=== PATIENT | male | born 1990 | race Caucasian/White ===

== ENCOUNTER 2021-09-04 15:50 | Inpatient (IN) | payer BC, OTHER ==
[~2021-09-04] VITALS: Ht 182.9 cm; Wt 87.3 kg
[2021-09-04] MEDS ORDERED: SODIUM CHLORIDE 0.9% 1,000 ML IV ONE ×3 (16:00→16:15)
[2021-09-04] MEDS ORDERED: InsuLIN REG 1unit/0.01ml Soln (100units/ml) IV ONE (16:15)
[2021-09-04 17:20] LABS: Basophils # (auto) 0.1 10 ^3/uL (0-0.2); Basophils % (auto) 1.3 % (0.0-2.0); Eosinophils # (auto) 0.6 10 ^3/uL (0-0.8); Eosinophils % (auto) 8.1 % (0.0-7.0); Hematocrit 42.3 % (41.0-53.0); Hemoglobin 14.4 g/dL (13.5-17.5); Lymphocytes # (auto) 2.3 10 ^3/uL (0.4-5.4); Mean Corpuscular Hemoglobin 32.2 pg (28.0-32.0); Mean Corpuscular Volume 94.7 fL (80.0-100.0); Monocytes # (auto) 0.3 10 ^3/uL (0-1.3); Monocytes % (auto) 4.3 % (0.0-12.0); Neutrophils # (auto) 4.5 10 ^3/uL (1.6-8.6); Neutrophils % (auto) 57.3 % (37.0-80.0); Nucleated Red Blood Cells % 0.2 %; Red Blood Cells 4.47 10^6/uL (4.5-5.90); Red Cell Distribution Width 13.5 % (11.8-14.3); White Blood Cell 7.9 10^3/uL (4.4-10.8)
[2021-09-04 17:43] LABS: Albumin 3.3 g/dL (3.4-5.0); BUN/Creatinine Ratio 13.4; Calcium 9.1 mg/dL (8.5-10.1); Potassium 4.3 mmol/L (3.5-5.1)
[2021-09-04 17:46] LABS: Bilirubin, Total 0.9 mg/dL (0.2-1.0); Total Protein 7.2 g/dL (6.4-8.2)
[2021-09-04 19:01] LABS: Alcohol, Urine < 3.0 mg/dL (0-10); Amphetamine Screen, Urine NEGATIVE (NEGATIVE); Barbiturate Scree,Urine NEGATIVE (NEGATIVE); Benzodiazephine Screen, Urine NEGATIVE (NEGATIVE); Cannabinoid Screen, Urine NEGATIVE (NEGATIVE); Cocaine Screen, Urine NEGATIVE (NEGATIVE); Opiate Scree,Urine NEGATIVE (NEGATIVE); Phencyclidine Screen, Urine NEGATIVE (NEGATIVE)
[2021-09-04] MEDS ORDERED: DEXTROSE (50%) 50ML SYRG IV PRN (21:15)
[2021-09-04] MEDS ORDERED: ONDANSETRON HCL 4 MG/2 ML VIAL IV PRN (21:15)
[2021-09-04 22:35] LABS: Calcium 7.9 mg/dL (8.5-10.1); Potassium 3.8 mmol/L (3.5-5.1)
[2021-09-04] MEDS ORDERED: MORPHINE SULFATE INJECTION 2 MG/ML SYRG IV ONE (23:00)
[2021-09-04] MEDS ORDERED: ONDANSETRON HCL 4 MG/2 ML VIAL IV ONE (23:00)
[2021-09-05] MEDS: ACCU-CHEK COMFORT CURVE STRIP VI SCH ×5 (00:01→16:16)
[2021-09-05] MEDS: InsuLIN REG 1unit/0.01ml Soln (100units/ml) SC SCH ×5 (00:02→16:18)
[2021-09-05 05:00] VITALS: BP 144/84
[2021-09-05] MEDS ORDERED: DAPA1TAB4 PO (06:56)
[2021-09-05] MEDS ORDERED: INSLISPI SC (06:56)
[2021-09-05] MEDS ORDERED: LEVO25TA6 PO ×2 (06:57→14:03)
[2021-09-05 07:02] LABS: Basophils # (auto) 0.1 10 ^3/uL (0-0.2); Eosinophils % (auto) 14.3 % (0.0-7.0); Hemoglobin 12.8 g/dL (13.5-17.5); Lymphocytes # (auto) 3.6 10 ^3/uL (0.4-5.4); Lymphocytes % (auto) 51.9 % (10.0-50.0); Mean Corpuscular Hemoglobin 32.5 pg (28.0-32.0); Mean Corpuscular Hgb Conc. 33.8 g/dL (32.0-36.0); Mean Corpuscular Volume 96.3 fL (80.0-100.0); Monocytes # (auto) 0.5 10 ^3/uL (0-1.3); Monocytes % (auto) 6.7 % (0.0-12.0); Neutrophils # (auto) 1.8 10 ^3/uL (1.6-8.6); Neutrophils % (auto) 26.1 % (37.0-80.0); Nucleated Red Blood Cells % 0.1 %; Red Blood Cells 3.95 10^6/uL (4.5-5.90); Red Cell Distribution Width 13.9 % (11.8-14.3); White Blood Cell 6.9 10^3/uL (4.4-10.8)
[2021-09-05 07:19] LABS: Albumin 3.1 g/dL (3.4-5.0); Calcium 8.6 mg/dL (8.5-10.1); Potassium 3.7 mmol/L (3.5-5.1)
[2021-09-05 07:22] LABS: BUN/Creatinine Ratio 21.8; Bilirubin, Total 0.5 mg/dL (0.2-1.0); Total Protein 6.4 g/dL (6.4-8.2)
[2021-09-05 09:00] VITALS: BP 132/82
[2021-09-05] MEDS ORDERED: PANTOPRAZOLE 40 MG TAB PO SCH (10:00)
[2021-09-05 13:00] VITALS: BP 116/78
[2021-09-05] MEDS ORDERED: INSREG3 IV (14:03)
[2021-09-05] MEDS ORDERED: INSLANTI SC (14:03)
== END 2021-09-05 17:00 | disposition home or self-care (01) | DRG 638 ==
LOC: ER 15:50 → OVERFLOW 21:07 → CENTRAL 23:16
PROVIDERS: ADMIT Nurse Practitioner; ATTEND Internal Medicine
DX: E11.10 Type 2 diabetes mellitus with ketoacidosis without coma (principal); N17.9 Acute kidney failure, unspecified; M25.561 Pain in right knee; M25.562 Pain in left knee; E03.9 Hypothyroidism, unspecified; E86.0 Dehydration; K76.0 Fatty (change of) liver, not elsewhere classified; Z79.4 Long term (current) use of insulin; Z88.0 Allergy status to penicillin; Z20.822 Contact with and (suspected) exposure to COVID-19
CPT/HCPCS: 36415; 36600; 74176; 76705; 80048; 80053; 80307; 82010; 82805; 82962; 83036; 84443; 85025; 96361; 96372; 96374; 96375; 99291; G0378; J1815; J2405

== ENCOUNTER 2021-09-12 15:52 | Inpatient (IN) | payer BC ==
[~2021-09-12] VITALS: Ht 182.9 cm; Wt 86.1 kg
[~2021-09-12 15:52] MED LIST: DAPA1TAB4 PO; INSLANTI SC; INSLISPI SC; INSREG3 IV; LEVO25TA6 PO
[2021-09-12] MEDS ORDERED: InsuLIN REG 1unit/0.01ml Soln (100units/ml) IV ONE (16:30)
[2021-09-12] MEDS ORDERED: SODIUM CHLORIDE 0.9% 1,000 ML IVB ONE (16:30)
[2021-09-12] MEDS ORDERED: ONDANSETRON HCL 4 MG/2 ML VIAL IV ONE (16:30)
[2021-09-12 17:16] LABS: Basophils # (auto) 0.1 10 ^3/uL (0-0.2); Basophils % (auto) 0.5 % (0.0-2.0); Eosinophils # (auto) 0 10 ^3/uL (0-0.8); Eosinophils % (auto) 0.2 % (0.0-7.0); Hemoglobin 10.8 g/dL (13.5-17.5); Lymphocytes # (auto) 0.8 10 ^3/uL (0.4-5.4); Lymphocytes % (auto) 7.4 % (10.0-50.0); Mean Corpuscular Hemoglobin 32.5 pg (28.0-32.0); Mean Corpuscular Hgb Conc. 32.8 g/dL (32.0-36.0); Mean Corpuscular Volume 99.1 fL (80.0-100.0); Monocytes # (auto) 0.3 10 ^3/uL (0-1.3); Neutrophils % (auto) 88.9 % (37.0-80.0); Red Blood Cells 3.33 10^6/uL (4.5-5.90); Red Cell Distribution Width 13.4 % (11.8-14.3); White Blood Cell 11.3 10^3/uL (4.4-10.8)
[2021-09-12 17:24] LABS: Albumin 4.1 g/dL (3.4-5.0); BUN/Creatinine Ratio 9.4; Calcium 9.4 mg/dL (8.5-10.1); Potassium 4.1 mmol/L (3.5-5.1)
[2021-09-12 17:27] LABS: Bilirubin, Total 0.5 mg/dL (0.2-1.0); Total Protein 8.5 g/dL (6.4-8.2)
[2021-09-12 17:52] LABS: Urine Bacteria NONE SEEN /hpf (None Seen); Urine Blood Negative /uL (Negative); Urine Hyaline Cast MANY /lpf (0 - 2); Urine Specific Gravity 1.028 (1.001-1.035); Urine WBC 1 /hpf (0 - 3)
[2021-09-12] MEDS ORDERED: InsuLIN R (HUMAN) 100 UNITS in SODIUM CHL 0.9% 99 ML IV SCH (18:15)
[2021-09-12] MEDS ORDERED: DEXTROSE (50%) 50ML SYRG IV PRN (18:15)
[2021-09-12] MEDS ORDERED: INSULIN LANTUS (GLARGINE) 1 /0.01ml (100units/ml) SC ONE (18:15)
[2021-09-12] MEDS: ACCU-CHEK COMFORT CURVE STRIP VI SCH ×3 (18:55→22:43)
[2021-09-12] MEDS ORDERED: ACETAMINOPHEN 325 MG TAB PO ONE (19:00)
[2021-09-12] MEDS ORDERED: DOCUSATE SOD 100 MG CAP PO PRN (22:30)
[2021-09-12] MEDS ORDERED: ONDANSETRON HCL 4 MG/2 ML VIAL IV PRN (22:30)
[2021-09-12] MEDS ORDERED: D5W/ SOD CHL 0.9%/KCL 20MEQ 1,000 ML IV ONE ×2 (22:30→22:36)
[2021-09-12 23:29] VITALS: BP 127/82
[2021-09-12 23:49] LABS: Calcium 8.9 mg/dL (8.5-10.1); Magnesium 2.1 mg/dL (1.6-2.6); Potassium 4.3 mmol/L (3.5-5.1)
[2021-09-12 23:51] LABS: BUN/Creatinine Ratio 14.3
[2021-09-13] VITALS (23 sets, daily range): BP systolic 101–127; BP diastolic 67–82
[2021-09-13] MEDS: ACCU-CHEK COMFORT CURVE STRIP VI SCH ×11 (00:06→21:56)
[2021-09-13] MEDS ORDERED: ACETAMINOPHEN 325 MG TAB PO PRN (01:00)
[2021-09-13 02:41] LABS: Potassium 4.1 mmol/L (3.5-5.1)
[2021-09-13 03:18] LABS: BUN/Creatinine Ratio 12.3; Calcium 8.5 mg/dL (8.5-10.1)
[2021-09-13] MEDS: SODIUM CHLOR 0.9% PF (SALINE LOCK) 10ML VIAL/SYR IV SCH ×3 (06:05→21:55)
[2021-09-13] MEDS: LEVOTHYROXINE SODIUM 25 MCG TAB PO SCH (06:27)
[2021-09-13 08:47] LABS: Calcium 8.5 mg/dL (8.5-10.1); Potassium 3.6 mmol/L (3.5-5.1)
[2021-09-13 08:50] LABS: BUN/Creatinine Ratio 12.2
[2021-09-13] MEDS ORDERED: INSULIN LANTUS (GLARGINE) 1 /0.01ml (100units/ml) SC SCH (10:00)
[2021-09-13] MEDS: INSULIN LANTUS (GLARGINE) 1 /0.01ml (100units/ml) SC SCH (10:38)
[2021-09-13] MEDS ORDERED: DEXTROSE (50%) 50ML SYRG IV PRN (13:45)
[2021-09-13] MEDS ORDERED: InsuLIN REG 1unit/0.01ml Soln (100units/ml) SC ONE (17:00)
[2021-09-13] MEDS: InsuLIN REG 1unit/0.01ml Soln (100units/ml) SC SCH (17:00)
[2021-09-13] MEDS ORDERED: InsuLIN REG 1unit/0.01ml Soln (100units/ml) SC SCH (22:00)
[2021-09-13] MEDS ORDERED: HYDROcodone-ACET 5/325MG TAB PO ONE (22:15)
[2021-09-14 05:06] VITALS: BP 119/85
[2021-09-14 05:23] LABS: Basophils # (auto) 0.1 10 ^3/uL (0-0.2); Basophils % (auto) 0.9 % (0.0-2.0); Eosinophils # (auto) 0.4 10 ^3/uL (0-0.8); Eosinophils % (auto) 6.1 % (0.0-7.0); Hematocrit 33.5 % (41.0-53.0); Hemoglobin 11.6 g/dL (13.5-17.5); Lymphocytes # (auto) 3.6 10 ^3/uL (0.4-5.4); Lymphocytes % (auto) 50.6 % (10.0-50.0); Mean Corpuscular Hemoglobin 32.9 pg (28.0-32.0); Mean Corpuscular Hgb Conc. 34.6 g/dL (32.0-36.0); Mean Corpuscular Volume 95.1 fL (80.0-100.0); Monocytes # (auto) 0.4 10 ^3/uL (0-1.3); Monocytes % (auto) 5.3 % (0.0-12.0); Neutrophils # (auto) 2.6 10 ^3/uL (1.6-8.6); Neutrophils % (auto) 37.1 % (37.0-80.0); Nucleated Red Blood Cells % 0.1 %; Red Blood Cells 3.52 10^6/uL (4.5-5.90); Red Cell Distribution Width 13.3 % (11.8-14.3)
[2021-09-14 05:26] LABS: Calcium 8.3 mg/dL (8.5-10.1)
[2021-09-14] MEDS: SODIUM CHLOR 0.9% PF (SALINE LOCK) 10ML VIAL/SYR IV SCH (05:31)
[2021-09-14] MEDS: InsuLIN REG 1unit/0.01ml Soln (100units/ml) SC SCH ×2 (06:23→11:09)
[2021-09-14] MEDS: LEVOTHYROXINE SODIUM 25 MCG TAB PO SCH (06:23)
[2021-09-14] MEDS: ACCU-CHEK COMFORT CURVE STRIP VI SCH ×2 (06:23→11:07)
[2021-09-14 09:26] VITALS: BP 119/69
[2021-09-14] MEDS: INSULIN LANTUS (GLARGINE) 1 /0.01ml (100units/ml) SC SCH (09:40)
[2021-09-14] MEDS ORDERED: POTASSIUM EFFERVESENT TAB 25 MEQ PO ONE (11:30)
[2021-09-14 12:45] VITALS: BP 119/80
== END 2021-09-14 12:13 | disposition home or self-care (01) | DRG 639 ==
LOC: ER 15:52 → ICU WEST 22:23 → TELE-CENTR 09-13 17:58
PROVIDERS: ADMIT Internal Medicine; ATTEND Internal Medicine
DX: E11.10 Type 2 diabetes mellitus with ketoacidosis without coma (principal); E86.0 Dehydration; Z20.822 Contact with and (suspected) exposure to COVID-19; Z80.9 Family history of malignant neoplasm, unspecified; Z83.3 Family history of diabetes mellitus; Z88.0 Allergy status to penicillin
CPT/HCPCS: 36415; 36600; 71045; 80048; 80053; 81001; 82010; 82150; 82805; 82962; 83605; 83690; 83735; 85025; 87081; 93005; 96361; 96374; 96375; 99291; G0378; J1815; J2405

== ENCOUNTER → 2021-09-30 | Outpatient (CLI) | payer BC ==
[2021-09-30 10:16] LABS: Basophils # (auto) 0.1 10 ^3/uL (0-0.2); Eosinophils # (auto) 0.6 10 ^3/uL (0-0.8); Eosinophils % (auto) 10.9 % (0.0-7.0); Hematocrit 33.7 % (41.0-53.0); Hemoglobin 11.5 g/dL (13.5-17.5); Lymphocytes # (auto) 2.2 10 ^3/uL (0.4-5.4); Lymphocytes % (auto) 41.6 % (10.0-50.0); Mean Corpuscular Hemoglobin 32.5 pg (28.0-32.0); Mean Corpuscular Volume 95.7 fL (80.0-100.0); Monocytes # (auto) 0.3 10 ^3/uL (0-1.3); Monocytes % (auto) 5.6 % (0.0-12.0); Neutrophils # (auto) 2.2 10 ^3/uL (1.6-8.6); Neutrophils % (auto) 40.9 % (37.0-80.0); Nucleated Red Blood Cells % 0.1 %; Red Blood Cells 3.52 10^6/uL (4.5-5.90); Red Cell Distribution Width 13.4 % (11.8-14.3); White Blood Cell 5.3 10^3/uL (4.4-10.8)
[2021-09-30 10:45] LABS: Albumin 2.9 g/dL (3.4-5.0); Calcium 8.4 mg/dL (8.5-10.1); Potassium 4.1 mmol/L (3.5-5.1)
[2021-09-30 10:50] LABS: BUN/Creatinine Ratio 11.6; Bilirubin, Total 0.3 mg/dL (0.2-1.0)
[2021-10-01 17:39] LABS: Hepatitis A Ab IgM Negative; Hepatitis B Core IgM Negative; Hepatitis C Antibody Negative (Negative)
== END | disposition home or self-care (01) ==
LOC: LAB 09:51
PROVIDERS: ATTEND Internal Medicine
DX: D64.9 Anemia, unspecified (principal); R79.89 Other specified abnormal findings of blood chemistry; E11.9 Type 2 diabetes mellitus without complications
CPT/HCPCS: 36415; 80053; 80061; 80074; 82043; 84443; 85025

== ENCOUNTER → 2022-02-10 | Outpatient (CLI) | payer BC ==
[2022-02-10 12:31] LABS: Cholesterol 182 mg/dL (< 200)
[2022-02-10 12:34] LABS: HDL Cholesterol 39 mg/dL (40-59); LDL Cholesterol 121 mg/dL (< 100); Triglycerides 156 mg/dL (< 150)
== END | disposition home or self-care (01) ==
LOC: LAB 11:17
PROVIDERS: ATTEND Internal Medicine
DX: E11.9 Type 2 diabetes mellitus without complications (principal); E78.5 Hyperlipidemia, unspecified; R79.89 Other specified abnormal findings of blood chemistry
CPT/HCPCS: 36415; 80061; 83036; 84443

== ENCOUNTER → 2022-03-31 | Outpatient (CLI) | payer BC ==
[2022-03-31 14:39] LABS: Albumin 3.3 g/dL (3.4-5.0); Bilirubin, Direct 0.2 mg/dL (0-0.2); Bilirubin, Total 0.8 mg/dL (0.2-1.0); Total Protein 6.3 g/dL (6.4-8.2)
== END | disposition home or self-care (01) ==
LOC: LAB 13:25
PROVIDERS: ATTEND Internal Medicine
DX: E11.9 Type 2 diabetes mellitus without complications (principal); E78.5 Hyperlipidemia, unspecified
CPT/HCPCS: 36415; 80061; 80076; 84443

== ENCOUNTER 2022-04-28 13:48 | Emergency (ER) | payer BC ==
[~2022-04-28] VITALS: Ht 182.9 cm; Wt 85.0 kg
[2022-04-28 13:58] VITALS: BP 117/88
[2022-04-28 15:22] LABS: Basophils # (auto) 0.1 10 ^3/uL (0-0.2); Eosinophils # (auto) 0 10 ^3/uL (0-0.8); Eosinophils % (auto) 0.7 % (0.0-7.0); Hematocrit 39.1 % (41.0-53.0); Hemoglobin 12.8 g/dL (13.5-17.5); Lymphocytes # (auto) 2.1 10 ^3/uL (0.4-5.4); Lymphocytes % (auto) 31.1 % (10.0-50.0); Mean Corpuscular Hemoglobin 30.6 pg (28.0-32.0); Mean Corpuscular Hgb Conc. 32.7 g/dL (32.0-36.0); Mean Corpuscular Volume 93.5 fL (80.0-100.0); Monocytes # (auto) 0.4 10 ^3/uL (0-1.3); Neutrophils # (auto) 4.2 10 ^3/uL (1.6-8.6); Neutrophils % (auto) 61.2 % (37.0-80.0); Nucleated Red Blood Cells % 0.1 %; Red Blood Cells 4.18 10^6/uL (4.5-5.90); Red Cell Distribution Width 14.4 % (11.8-14.3); White Blood Cell 6.8 10^3/uL (4.4-10.8)
[2022-04-28 15:34] LABS: Albumin 2.9 g/dL (3.4-5.0); Calcium 9.2 mg/dL (8.5-10.1)
[2022-04-28 15:37] LABS: Bilirubin, Total 0.9 mg/dL (0.2-1.0); Total Protein 6.4 g/dL (6.4-8.2)
== END 2022-04-28 18:30 | disposition home or self-care (01) ==
LOC: ER 13:55
DX: E11.65 Type 2 diabetes mellitus with hyperglycemia (principal); E03.9 Hypothyroidism, unspecified; Z79.4 Long term (current) use of insulin; Z79.899 Other long term (current) drug therapy; Z88.0 Allergy status to penicillin
CPT/HCPCS: 36415; 36600; 80053; 82805; 85025

== ENCOUNTER → 2022-05-01 | Outpatient (CLI) | payer BC ==
[2022-05-01 10:58] LABS: Basophils # (auto) 0 10 ^3/uL (0-0.2); Basophils % (auto) 0.5 % (0.0-2.0); Eosinophils # (auto) 0.2 10 ^3/uL (0-0.8); Hematocrit 41.7 % (41.0-53.0); Hemoglobin 13.8 g/dL (13.5-17.5); Lymphocytes # (auto) 2.8 10 ^3/uL (0.4-5.4); Lymphocytes % (auto) 46.7 % (10.0-50.0); Mean Corpuscular Hemoglobin 30.6 pg (28.0-32.0); Mean Corpuscular Hgb Conc. 33.1 g/dL (32.0-36.0); Mean Corpuscular Volume 92.7 fL (80.0-100.0); Monocytes # (auto) 0.4 10 ^3/uL (0-1.3); Monocytes % (auto) 6.6 % (0.0-12.0); Neutrophils # (auto) 2.6 10 ^3/uL (1.6-8.6); Neutrophils % (auto) 43.2 % (37.0-80.0); Nucleated Red Blood Cells % 0.4 %; Red Cell Distribution Width 13.7 % (11.8-14.3)
[2022-05-01 11:03] LABS: Urine Bacteria NONE SEEN /hpf (None Seen); Urine Blood Negative /uL (Negative); Urine Hyaline Cast MOD /lpf (0 - 2); Urine Mucus FEW (None Seen); Urine Specific Gravity 1.021 (1.001-1.035); Urine WBC 2 /hpf (0 - 3)
[2022-05-01 11:24] LABS: Potassium 3.6 mmol/L (3.5-5.1)
[2022-05-01 11:29] LABS: Albumin 3.1 g/dL (3.4-5.0); BUN/Creatinine Ratio 7.4; Bilirubin, Total 0.4 mg/dL (0.2-1.0); Calcium 9.1 mg/dL (8.5-10.1)
== END | disposition home or self-care (01) ==
LOC: LAB 10:43
PROVIDERS: ATTEND Internal Medicine
DX: E11.9 Type 2 diabetes mellitus without complications (principal); E78.5 Hyperlipidemia, unspecified; R79.89 Other specified abnormal findings of blood chemistry
CPT/HCPCS: 36415; 80053; 81001; 82150; 83690; 85025